=== PATIENT | female | born 1970 | race Caucasian/White ===

== ENCOUNTER 2017-12-08 20:23 | Emergency (ER) | payer BC ==
[~2017-12-08] VITALS: Ht 162.6 cm; Wt 88.1 kg
[~2017-12-08 20:23] MED LIST: CARI350T27 PO; LEVO25TA30 PO; OSEL75CA23 PO; SERT1TAB71 PO; VITAMINS
[2017-12-08 20:37] VITALS: Ht 162.6 cm; Wt 88.1 kg
[2017-12-08] MEDS ORDERED: KETOROLAC TROMETHAMINE 30 MG/ML VIAL IV STA (21:18)
[2017-12-08] MEDS ORDERED: SODIUM CHLORIDE 0.9% 1000ML 1,000 ML IV STA (21:18)
[2017-12-08 21:44] VITALS: O2SAT 95
[2017-12-08 21:59] LABS: BASO % 0.2 %; BASO ABS # 0.01 K/uL (0-0.2); EOS % 0.9 %; EOS ABS # 0.05 K/uL (0-0.5); HEMATOCRIT 41.5 % (37-47); HEMOGLOBIN 14.1 g/dL (12.0-16.0); IG# 0.01 K/uL (0.00-0.02); LYMPH % 15.4 %; LYMPH ABS # 0.83 K/uL (1.2-3.4); MEAN CELL VOLUME 88.7 fL (80-100); MEAN CORPUSCULAR HEMOGLOBIN 30.1 pg (25-34); MEAN PLATELET VOLUME 9.8 fL (7.4-10.4); MONO % 9.5 %; MONO ABS # 0.51 K/uL (0.11-0.59); NEUT % 73.8 %; NEUT ABS # 3.97 K/uL (1.4-6.5); PLATELET COUNT 194 K/uL (130-400); RED CELL DISTRIBUTION WIDTH CV 13.1 % (11.5-14.5); RED CELL DISTRIBUTION WIDTH SD 42.3 fL (36.4-46.3); WHITE BLOOD COUNT 5.38 K/uL (4.8-10.8)
[2017-12-08] MEDS ORDERED: LEVO25TA5 PO (22:11)
[2017-12-08] MEDS ORDERED: PANT40TA PO (22:13)
[2017-12-08] MEDS ORDERED: LEVO50TA6 PO (22:14)
[2017-12-08 22:16] LABS: INFLUENZA B ANTIGEN Neg for Influ B (NEG)
[2017-12-08 22:17] LABS: ALBUMIN 3.7 gm/dl (3.4-5.0); ALT/SGPT 29 U/L (12-78); BLOOD UREA NITROGEN 12 mg/dl (7-18); CALCIUM 8.6 mg/dl (8.5-10.1); CARBON DIOXIDE 26 mmol/L (21-32); CREATININE 0.94 mg/dl (0.60-1.20); GLUCOSE 100 mg/dl (70-99); POTASSIUM 3.7 mmol/L (3.5-5.1); SODIUM 135 mmol/L (136-145)
--- NOTE | 2017-12-08 22:17 | DIAGNOSTIC IMAGING REPORT ---
TWO VIEW CHEST CLINICAL HISTORY: Cough and fever. FINDINGS: PA and lateral chest radiographs are compared to study dated 10/15/2012. The cardiomediastinal silhouette is unremarkable. There our bibasilar airspace opacities. There is no pleural effusion or pneumothorax. The bony thorax appears intact. IMPRESSION: Bibasilar airspace opacities likely represent atelectasis. Correlate clinically for evidence of an infectious/inflammatory pneumonitis. Electronically signed by: Dany Jennings M.D. 12/08/2017 10:16 PM Dictated Date/Time: 12/08/2017 10:15 PM
[2017-12-08 22:22] LABS: ALKALINE PHOSPHATASE 54 U/L (45-117); AST/SGOT 18 U/L (15-37); CKMB < 0.5 ng/ml (0.5-3.6); TOTAL PROTEIN 7.9 gm/dl (6.4-8.2)
[2017-12-08] MEDS ORDERED: ACETAMINOPHEN 325 MG TAB PO STA (22:55)
[2017-12-08] MEDS ORDERED: ACETAMINOPHEN SUSP 160 MG/5 ML UDC PO STA (22:58)
[2017-12-08] MEDS ORDERED: ACETAMINOPHEN SUSP 160 MG/5 ML UDC ONE (23:04)
[2017-12-08 23:06] VITALS: TEMP 37.4
--- NOTE | 2017-12-08 23:55 | EMERGENCY ROOM VISIT NOTE ---
History First contact with patient: 21:11 Chief Complaint: FEVER Stated Complaint: FEVER, CHILLS, COUGH, PAIN History of Present Illness The patient is a 47 year old female who presents to the Emergency Room via private vehicle with complaints of "fever, chills, cough, pain". The patient states that this past Wednesday she began with tiredness, pain in the lower back, favoring left side, as well as cough, and fever. She denies shortness of breath. She states when she coughs there is pain in her chest and her ribs. She has no pertinent past medical history. She notes that she rarely has a fever. There is minimum sputum production. She denies any dysuria but does note that her urine does smell foul. She has not had any OTC antipyretic medication today. Review of Systems A complete 10-point Review of Systems was discussed with the patient, with pertinent positives and negatives listed in the History of Present Illness. All remaining Review of Systems questions can be considered negative unless otherwise specified. Past Medical/Surgical History Medical Problems: (1) Gastroesophageal reflux disease (2) Hypothyroidism (3) IRRITABLE BOWEL SYNDROME (4) Malignant melanoma (5) Tobacco user Social History Smoking Status: Never Smoker Alcohol Use: none Marital Status: single Occupation Status: employed Current/Historical Medications Scheduled Levothyroxine Sodium (Levothyroxine Sodium), 50 MCG PO DAILY Pantoprazole (Protonix), 40 MG PO DAILY Sertraline Hcl (Zoloft), 75 MG PO DAILY Scheduled PRN Carisoprodol (Soma), 350 MG PO BID PRN for Pain Physical Exam Vital Signs Date Time Temp Pulse Resp B/P (MAP) Pulse Ox O2 Delivery O2 Flow Rate FiO2 12/09/17 00:58 81 14 103/51 97 Room Air 12/08/17 23:06 37.4 86 14 132/75 97 Room Air 12/08/17 22:13 37.8 90 18 126/76 99 Room Air 12/08/17 21:54 87 12/08/17 21:44 95 Room Air 12/08/17 20:37 37.9 119 20 128/88 97 Room Air Physical Exam VITAL SIGNS - Vital signs and nursing notes were reviewed. Stable. Afebrile, tachycardic. GENERAL -47-year-old female appearing her stated age who is in no acute distress. Nontoxic on exam. Communicates well with provider and answers questions appropriately. SKIN - Without rashes. No petechiae or meningeal rash. HEAD - NC/AT. EYES - Sclera anicteric. EARS - No deformities of external structures noted on gross examination bilaterally. External auditory canals without discharge or otorrhea. Tympanic membranes pearly duenas without retraction or bulging. No fluid or purulent material visualized behind the TM. Handle of malleus, umbo, cone of light, pars tensa/flaccid all easily visualized. NOSE - Midline and without cyanosis. No epistaxis or purulent drainage noted. MOUTH/OROPHARYNX - Without perioral cyanosis. Buccal mucosa pink and moist and without leukoplakia. Tongue midline with equal elevation of palate bilaterally. No tonsillar hypertrophy, erythema, or exudates noted. Fair dentition noted. NECK - Neck with FROM. Supple to palpation. No meningismus. No nuchal rigidity. LUNGS - Chest wall symmetric without accessory muscle use, intercostals retractions, or central cyanosis. Normal vesicular breath sounds CTA B/L. No wheezes, rales, or rhonchi appreciated. CARDIAC - RRR with S1/S2. No murmur, rubs, or gallops appreciated. ABDOMEN - Abdominal contour normal without pulsations or visible masses. BS normoactive all four quadrants. No pertinent tenderness, palpable masses, hepatosplenomegaly, or ascites noted. EXTREMITIES - No clubbing or peripheral cyanosis. No pretibial edema present. NEUROLOGIC - Cranial nerves II through XII grossly intact. Medical Decision & Procedures ER Provider Diagnostic Interpretation: TWO VIEW CHEST CLINICAL HISTORY: Cough and fever. FINDINGS: PA and lateral chest radiographs are compared to study dated 10/15/2012. The cardiomediastinal silhouette is unremarkable. There our bibasilar airspace opacities. There is no pleural effusion or pneumothorax. The bony thorax appears intact. IMPRESSION: Bibasilar airspace opacities likely represent atelectasis. Correlate clinically for evidence of an infectious/inflammatory pneumonitis. Electronically signed by: Dany Jennings M.D. 12/08/2017 10:16 PM Dictated Date/Time: 12/08/2017 10:15 PM Laboratory Results 12/08/17 21:30 Red Blood Count 4.68, Mean Corpuscular Volume 88.7, Mean Corpuscular Hemoglobin 30.1, Mean Corpuscular Hemoglobin Concent 34.0, Mean Platelet Volume 9.8, Neutrophils (%) (Auto) 73.8, Lymphocytes (%) (Auto) 15.4, Monocytes (%) (Auto) 9.5, Eosinophils (%) (Auto) 0.9, Basophils (%) (Auto) 0.2, Neutrophils # (Auto) 3.97, Lymphocytes # (Auto) 0.83, Monocytes # (Auto) 0.51, Eosinophils # (Auto) 0.05, Basophils # (Auto) 0.01 12/08/17 21:30 Test 12/08/17 21:30 12/08/17 21:38 12/08/17 21:40 12/08/17 23:49 White Blood Count 5.38 K/uL (4.8-10.8) Red Blood Count 4.68 M/uL (4.2-5.4) Hemoglobin 14.1 g/dL (12.0-16.0) Hematocrit 41.5 % (37-47) Mean Corpuscular Volume 88.7 fL (80-100) Mean Corpuscular Hemoglobin 30.1 pg (25-34) Mean Corpuscular Hemoglobin Concent 34.0 g/dl (32-36) Platelet Count 194 K/uL (130-400) Mean Platelet Volume 9.8 fL (7.4-10.4) Neutrophils (%) (Auto) 73.8 % Lymphocytes (%) (Auto) 15.4 % Monocytes (%) (Auto) 9.5 % Eosinophils (%) (Auto) 0.9 % Basophils (%) (Auto) 0.2 % Neutrophils # (Auto) 3.97 K/uL (1.4-6.5) Lymphocytes # (Auto) 0.83 K/uL (1.2-3.4) Monocytes # (Auto) 0.51 K/uL (0.11-0.59) Eosinophils # (Auto) 0.05 K/uL (0-0.5) Basophils # (Auto) 0.01 K/uL (0-0.2) RDW Standard Deviation 42.3 fL (36.4-46.3) RDW Coefficient of Variation 13.1 % (11.5-14.5) Immature Granulocyte % (Auto) 0.2 % Immature Granulocyte # (Auto) 0.01 K/uL (0.00-0.02) Anion Gap 6.0 mmol/L (3-11) Est Creatinine Clear Calc Drug Dose 80.4 ml/min Estimated GFR () 84.3 Estimated GFR (Non- 72.8 BUN/Creatinine Ratio 12.5 (10-20) Calcium Level 8.6 mg/dl (8.5-10.1) Total Bilirubin 0.2 mg/dl (0.2-1) Aspartate Amino Transf (AST/SGOT) 18 U/L (15-37) Alanine Aminotransferase (ALT/SGPT) 29 U/L (12-78) Alkaline Phosphatase 54 U/L (45-117) Total Creatine Kinase 73 U/L (26-192) Creatine Kinase MB < 0.5 ng/ml (0.5-3.6) Creatine Kinase MB Ratio (0-3.0) Total Protein 7.9 gm/dl (6.4-8.2) Albumin 3.7 gm/dl (3.4-5.0) Globulin 4.2 gm/dl (2.5-4.0) Albumin/Globulin Ratio 0.9 (0.9-2) Influenza Type A Antigen POS for Influ A (NEG) Influenza Type B Antigen Neg for Influ B (NEG) Lactic Acid Level 1.0 mmol/L (0.4-2.0) Urine Color YELLOW Urine Appearance CLEAR (CLEAR) Urine pH 8.0 (4.5-7.5) Urine Specific [place] 1.020 (1.000-1.030) Urine Protein NEG (NEG) Urine Glucose (UA) NEG (NEG) Urine Ketones NEG (NEG) Urine Occult Blood NEG (NEG) Urine Nitrite NEG (NEG) Urine Bilirubin NEG (NEG) Urine Urobilinogen NEG (NEG) Urine Leukocyte Esterase NEG (NEG) Urine Test NEG (NEG) Medications Administered Medications (Trade) Dose Ordered Sig/Eugenie Route Start Time Stop Time Status Last Admin Dose Admin Sodium Chloride 1,000 ml @ 999 mls/hr Q1H1M STAT IV 12/08/17 21:18 12/08/17 22:18 DC 12/08/17 21:50 999 MLS/HR Ketorolac Tromethamine (Toradol Inj) 30 mg NOW STAT IV 12/08/17 21:18 12/08/17 21:20 DC 12/08/17 21:50 30 MG Acetaminophen (Tylenol Children'S Susp) 650 mg NOW STAT PO 12/08/17 22:58 12/08/17 23:00 DC 12/08/17 23:08 650 MG Medical Decision Patient was seen and evaluated as above. She presents to us today with a fever , chills, cough and diffuse muscle pain. She is nontoxic on exam, but does appear to be ill. She is tachycardic, and febrile. IV access was initiated, and the above workup was performed. I did elect to obtain blood culture secondary to her clinical presentation. There is no leukocytosis or anemia. Metabolic panel reveals sodium low at 135, no evidence of kidney or liver failure. CK-MB normal. No evidence of rhabdomyolysis. She was positive for flu. Urine negative. She appears stable for outpatient management. X-ray shows what I believe to be atelectasis over pneumonitis. She was given fluids here, Toradol and Tylenol. She appears to have improved. She is to follow with her family doctor or return with worsening. She was educated upon management, educated upon worrisome symptoms which to return, had questions and provided discharge, and was discharged home in good condition. In evaluation treatment this patient the following differential diagnoses were entertained: Influenza, sepsis, pneumonia, UTI, pyelonephritis, among others. Impression Primary Impression: Fever Additional Impression: Influenza Departure Information Dispostion Home / Self-Care Condition GOOD Referrals Stephon Rodriguez M.D. (PCP) Patient Instructions My [facility] Additional Instructions You have been treated in the Emergency Department for fever, chills, cough and low back pain Your testing indicated that you have influenza (flu) This is contagious. I recommend hand washing and wearing a mask when around people to cover your nose and mouth to help prevent spread. For fever and pain control, you can use the following [id number] medicines : - Regular strength (325mg/tab) Tylenol (acetaminophen) 2 tabs every 4-6 hours as needed. Do not exceed 12 tablets in a 24 hour period. Avoid taking more than 3 grams (3000 mg) of Tylenol per day. This includes any other sources of acetaminophen you may take on a regular basis. - Regular strength (200 mg/tab) Advil (ibuprofen) 1-2 tabs every 4-6 hours as needed. Do not exceed a dose of 3200 mg per day. I recommend rest, and plenty of fluids to include those with electrolytes such as Gatorade or Powerade. Please call your family doctor to schedule follow-up in about 1 week. As we discussed you're been diagnosed with the flu, and found to be positive upon our testing here. Please return with any new/concerning symptoms. Problem Qualifiers
[2017-12-09 00:58] VITALS: BP 103/51; PULSE 81; O2SAT 97
[2017-12-10] MEDS ORDERED: CARI350T PO (10:12)
== END 2017-12-09 01:20 | disposition home or self-care (01) ==
LOC: C.EDB 20:25
DX: R50.9 Fever, unspecified (principal); J11.1 Influenza due to unidentified influenza virus with other respiratory manifestations; K21.9 Gastro-esophageal reflux disease without esophagitis; E03.9 Hypothyroidism, unspecified; K58.9 Irritable bowel syndrome, unspecified; F17.200 Nicotine dependence, unspecified, uncomplicated; Z85.820 Personal history of malignant melanoma of skin

== ENCOUNTER 2017-12-10 07:24 | Emergency (ER) | payer BC ==
[~2017-12-10] VITALS: Ht 162.6 cm; Wt 89.0 kg
[~2017-12-10 07:24] MED LIST changes: -LEVO25TA30 PO; +LEVO50TA6 PO; -OSEL75CA23 PO; +PANT40TA PO; -VITAMINS
[2017-12-10 07:26] VITALS: Ht 162.6 cm; Wt 89.0 kg
[2017-12-10] MEDS ORDERED: KETOROLAC TROMETHAMINE 30 MG/ML VIAL IV STA (07:50)
[2017-12-10] MEDS ORDERED: ONDANSETRON INJ 2 MG/ML 2 ML VIAL IV STA (07:50)
--- NOTE | 2017-12-10 08:01 | EMERGENCY ROOM VISIT NOTE ---
History First contact with patient: 07:37 Chief Complaint: ABDOMINAL PAIN Stated Complaint: SEVERE ABDOMINAL PAIN,DX WITH THE FLU Nursing Triage Summary: c/o lower pelvic pain with nausea recently dx with the flu History of Present Illness The patient is a 47 year old female who presents to the Emergency Room with complaints of severe lower abdominal pain which began at approximately midnight. The patient states she was here 2 days ago and diagnosed with the flu. She did not have the severe abdominal pain at that time, but developed it last night. She states she is currently on her menstrual cycle, however has not ever experienced pain like this before. She describes it as a sharp/ stabbing pain throughout her entire lower abdomen and radiating into her hips and back. She denies any urinary symptoms including frequency, blood in the urine, dysuria, or urinary hesitancy. She has a sensation like she may have to move her bowels, however has been unsuccessful. She does believe she may be constipated, as she has not moved her bowels for 2 days. She does have a history of ruptured ovarian cyst at approximately 19 years old, and states the pain she is experiencing now feels similar to the pain she felt then. She has had intermittent fevers, cough, chills, congestion. She states she had been taking Tylenol and ibuprofen for her fever and body aches, but has not taken any medications since last night. She did not vomit, but does complain of nausea. She rates the pain 10/10. She has been sick since Wednesday, and was not started on Tamiflu. Review of Systems A complete 10 point review of systems was reviewed with the patient with pertinent positives and negatives as per history of present illness. All else were negative. Past Medical/Surgical History Medical Problems: (1) Gastroesophageal reflux disease (2) Hypothyroidism (3) IRRITABLE BOWEL SYNDROME (4) Malignant melanoma (5) Tobacco user Social History Smoking Status: Never Smoker Alcohol Use: none Marital Status: single Occupation Status: employed Current/Historical Medications Scheduled Levothyroxine Sodium (Levothyroxine Sodium), 50 MCG PO DAILY Pantoprazole (Protonix), 40 MG PO DAILY Sertraline Hcl (Zoloft), 75 MG PO DAILY Scheduled PRN Carisoprodol (Soma), 350 MG PO BID PRN for Pain Carisoprodol (Soma), 1 TAB PO TID PRN for Muscle Spasms Physical Exam Vital Signs Date Time Temp Pulse Resp B/P (MAP) Pulse Ox O2 Delivery O2 Flow Rate FiO2 12/10/17 10:25 73 20 107/75 96 12/10/17 09:25 69 20 103/54 96 Room Air 12/10/17 07:26 37.0 87 20 126/87 95 Physical Exam VITALS: Vitals are noted on the nurse's note and reviewed by myself. Vital signs stable. GENERAL: This is a 47-year-old obese white female, appears in pain, unable to lie still, however, in no acute distress, nondiaphoretic, well-developed well- nourished. SKIN: The skin was without rashes, erythema, edema, or bruising. There is no tenting of the skin. Capillary reflex less than 2 seconds. HEAD: Normocephalic atraumatic. EARS: External auditory canals clear, tympanic membranes pearly duenas without erythema or effusion bilaterally. EYES: Pupils equal round and reactive to light and accommodation. Conjunctivae without injection, sclerae without icterus. Extraocular movements intact. NOSE: Patent, turbinates without inflammation or discharge. No sinus tenderness. MOUTH: Mucous membranes moist. Tonsils are not enlarged. Pharynx without erythema or exudate. Uvula midline. Airway patent. Tongue does not deviate. NECK: Supple without nuchal rigidity. No lymphadenopathy. No thyromegaly. Cervical spine is nontender. No JVD. HEART: Regular rate and rhythm without murmurs gallops or rubs. LUNGS: Clear to auscultation bilaterally without wheezes, rales or rhonchi. No dullness to percussion. No retractions or accessory muscle use. ABDOMEN: Positive bowel sounds x 4. Normal tympanic percussion. Abdomen was diffusely tender, but more so in the suprapubic region. Soft, without masses or organomegaly. Buenrostro sign negative. No guarding or rebound tenderness. MUSCULOSKELETAL: No muscle atrophy, erythema, or edema noted. Full range of motion without joint tenderness in all extremities. No tenderness to palpation. Normal gait. Strength 5/5 throughout. NEURO: Patient was alert and oriented to person place and time. Normal sensation to light and sharp touch. Deep tendon reflexes 2+ throughout. No focal neurological deficits. Medical Decision & Procedures ER Provider Diagnostic Interpretation: PA CHEST WITH ABDOMINAL SERIES CLINICAL HISTORY: Lower abdominal pain. Constipation. FINDINGS: A PA chest radiograph is compared to study dated 12/04/2013. The cardiomediastinal silhouette is unremarkable. The lungs and pleural spaces are clear. No pneumothorax is seen. The bony thorax is grossly intact. Supine and erect abdominal radiographs are obtained. No prior studies are available for comparison at the time of dictation. There is a nonobstructed abdominal bowel gas pattern. Mild to moderate colonic fecal retention is observed. No evidence of intraperitoneal free air is seen. There are no abnormal abdominal calcifications. Phleboliths are identified in the pelvis. The lumbosacral spine and bony pelvis appear intact. IMPRESSION: 1. No active disease in the chest. 2. Nonobstructed abdominal bowel gas pattern. Electronically signed by: Dany Jennings M.D. 12/10/2017 9:12 AM Dictated Date/Time: 12/10/2017 9:12 AM ULTRASOUND OF THE PELVIS CLINICAL HISTORY: Suprapubic pelvic pain. COMPARISON STUDY: No priors. TECHNIQUE: Real-time, grayscale, and color flow sonography of the pelvis is performed transabdominally. The patient declined the endovaginal examination. Images are reviewed in the transverse and longitudinal planes. FINDINGS: Uterus: The uterus is normal in size and echotexture, measuring 8.2 x 3.9 x 4.5 cm. Endometrium: The endometrium is normal in appearance, and the endometrial stripe is normal in thickness measuring up to 0.5 cm. Ovaries: The ovaries are normal in size and morphology. The right ovary measures 2.6 x 1.8 x 1.7 cm and the left ovary measures 2.1 x 1.3 x 1.7 cm. A follicle is noted on the right. Normal Doppler waveforms are shown within both ovaries. Pelvis: There is no free fluid in the cul-de-sac. No concerning adnexal lesion is seen. IMPRESSION: 1. Unremarkable transabdominal sonographic assessment of the pelvis. 2. The patient declined the endovaginal examination. Electronically signed by: Dany Jennings M.D. 12/10/2017 9:11 AM Dictated Date/Time: 12/10/2017 9:10 AM Laboratory Results 12/10/17 08:00 Red Blood Count 4.33, Mean Corpuscular Volume 88.5, Mean Corpuscular Hemoglobin 30.0, Mean Corpuscular Hemoglobin Concent 33.9, Mean Platelet Volume 9.9, Neutrophils (%) (Auto) 75.0, Lymphocytes (%) (Auto) 15.0, Monocytes (%) (Auto) 8.9, Eosinophils (%) (Auto) 0.9, Basophils (%) (Auto) 0.1, Neutrophils # (Auto) 5.24, Lymphocytes # (Auto) 1.05, Monocytes # (Auto) 0.62, Eosinophils # (Auto) 0.06, Basophils # (Auto) 0.01 12/10/17 08:00 Test 12/10/17 07:55 12/10/17 08:00 Urine Color YELLOW Urine Appearance CLEAR (CLEAR) Urine pH 5.0 (4.5-7.5) Urine Specific [place] 1.020 (1.000-1.030) Urine Protein NEG (NEG) Urine Glucose (UA) NEG (NEG) Urine Ketones NEG (NEG) Urine Occult Blood 2+ (NEG) Urine Nitrite NEG (NEG) Urine Bilirubin NEG (NEG) Urine Urobilinogen NEG (NEG) Urine Leukocyte Esterase TRACE (NEG) Urine WBC (Auto) 1-5 /hpf (0-5) Urine RBC (Auto) 0-4 /hpf (0-4) Urine Hyaline Casts (Auto) 0 /lpf (0-5) Urine Epithelial Cells (Auto) 5-10 /lpf (0-5) Urine Bacteria (Auto) NEG (NEG) Urine Test NEG (NEG) White Blood Count 6.99 K/uL (4.8-10.8) Red Blood Count 4.33 M/uL (4.2-5.4) Hemoglobin 13.0 g/dL (12.0-16.0) Hematocrit 38.3 % (37-47) Mean Corpuscular Volume 88.5 fL (80-100) Mean Corpuscular Hemoglobin 30.0 pg (25-34) Mean Corpuscular Hemoglobin Concent 33.9 g/dl (32-36) Platelet Count 181 K/uL (130-400) Mean Platelet Volume 9.9 fL (7.4-10.4) Neutrophils (%) (Auto) 75.0 % Lymphocytes (%) (Auto) 15.0 % Monocytes (%) (Auto) 8.9 % Eosinophils (%) (Auto) 0.9 % Basophils (%) (Auto) 0.1 % Neutrophils # (Auto) 5.24 K/uL (1.4-6.5) Lymphocytes # (Auto) 1.05 K/uL (1.2-3.4) Monocytes # (Auto) 0.62 K/uL (0.11-0.59) Eosinophils # (Auto) 0.06 K/uL (0-0.5) Basophils # (Auto) 0.01 K/uL (0-0.2) RDW Standard Deviation 42.1 fL (36.4-46.3) RDW Coefficient of Variation 13.1 % (11.5-14.5) Immature Granulocyte % (Auto) 0.1 % Immature Granulocyte # (Auto) 0.01 K/uL (0.00-0.02) Anion Gap 5.0 mmol/L (3-11) Est Creatinine Clear Calc Drug Dose 86.3 ml/min Estimated GFR () 91.3 Estimated GFR (Non- 78.8 BUN/Creatinine Ratio 12.6 (10-20) Calcium Level 8.3 mg/dl (8.5-10.1) Total Bilirubin 0.1 mg/dl (0.2-1) Aspartate Amino Transf (AST/SGOT) 16 U/L (15-37) Alanine Aminotransferase (ALT/SGPT) 23 U/L (12-78) Alkaline Phosphatase 48 U/L (45-117) Total Protein 7.2 gm/dl (6.4-8.2) Albumin 3.4 gm/dl (3.4-5.0) Globulin 3.8 gm/dl (2.5-4.0) Albumin/Globulin Ratio 0.9 (0.9-2) Lipase 157 U/L (73-393) Medications Administered Medications (Trade) Dose Ordered Sig/Eugenie Route Start Time Stop Time Status Last Admin Dose Admin Ketorolac Tromethamine (Toradol Inj) 30 mg NOW STAT IV 12/10/17 07:50 12/10/17 07:52 DC 12/10/17 08:04 30 MG Ondansetron HCl (Zofran Inj) 4 mg NOW STAT IV 12/10/17 07:50 12/10/17 07:52 DC 12/10/17 08:03 4 MG ED Course The patient was seen and evaluated as above. IV access obtained, labs drawn. The patient was given 30 mg Toradol and 4 mg Zofran for her pain and nausea. Abdominal x-ray and pelvic ultrasound performed and reviewed by myself and radiologist. The patient was reevaluated, with repeat abdominal examination. She is significantly less tender now. She does continue to complain of some very mild pelvic cramping. I discussed all findings with the patient at bedside. I discussed the case with Dr. Lucero. He did review the EMR, and agreed with discharge. Discharge instructions were reviewed with the patient. She was instructed on strict return precautions. All questions were answered to the patient's satisfaction. She did request a prescription for Soma, she states this has helped with her discomfort. The patient was discharged home in good condition. Medical Decision This is a 47-year-old female patient presents to the emergency department today complaining of severe abdominal cramping and pain. The patient is currently experiencing her menstrual cycle. She was also diagnosed with influenza A 2 days ago. The patient's symptoms improved significantly with IV Toradol and Zofran. Laboratory workup in the emergency department did not reveal any leukocytosis, electrolyte or renal function abnormalities, or urinary tract infection. Imaging studies did not show any signs of bowel obstruction, ovarian cyst, ovarian torsion. I did discuss the possibility of performing a CT scan of the abdomen/pelvis with the patient as well as Dr. Sams. As the patient's overall workup is negative, and her symptoms have significantly improved with pain medication, decision was made to discharge the patient home with instructions on proper pain management with strict return precautions if symptoms worsen. The patient was in agreement with this plan. Etiologies such as appendicitis, diverticulitis, obstruction, inflammatory bowel disease, renal colic, PUD, biliary pathology, pancreatitis, mesenteric ischemia, aortic pathology, infections, genitourinary, ovarian cyst, ovarian torsion, , , UTI, perforated viscus, as well as others were entertained. Medication Reconcilliation Current Medication List: was personally reviewed by me Blood Pressure Screening Patient's blood pressure: Normal blood pressure Impression Primary Impression: Abdominal pain Additional Impression: Influenza A Departure Information Dispostion Home / Self-Care Condition GOOD Prescriptions Carisoprodol (SOMA) 350 Mg Tab 1 TAB PO TID Y for Muscle Spasms, #15 TAB Prov: Pauline Quarles PA-C 12/10/17 Referrals Stephon Rodriguez M.D. (PCP) Patient Instructions ED Abdominal Pain Unkn Cause, My [facility] Additional Instructions You have been treated in the Emergency Department your Abdominal Pain. Laboratory results and imaging studies have ruled out any emergent causes for your abdominal pain which would warrant admission or surgery. You have been prescribed Soma to be used for pain control/muscle spasms. Take as instructed. You cannot drive or consume alcohol while on this medicine. This medicine should only be used for pain that cannot be controlled with over-the- counter pain medicines. Use the antiemetics you had been previously prescribed for nausea or vomiting. For pain control, you can use the following [id number] medicines (if >12 yo): Ibuprofen(Motrin, Advil) may be used for fever or pain. Use 600mg every six hours as needed. Take with food. Avoid using more than 2400mg in a 24 hour period. Do not use 2400mg per day for more than three consecutive days without physician direction. Prolonged inappropriate use can lead to stomach upset or ulcers. (AND/OR) Acetaminophen(Tylenol) may be used for fever or pain. Use 1000mg every six hours as needed. Avoid using more than 3000mg in a 24 hour period. Drink plenty of water and stay well hydrated. As with any trip to the Emergency Department, you should follow-up with your Primary Care Provider from today's visit. Return to the emergency department if your symptoms persist despite treatment plan outlined above or if the following symptoms occur: increased fevers, chills , worsening nausea/vomiting, abdominal pain, blood in your stool or urine. Problem Qualifiers Primary Impression: Abdominal pain Abdominal location: lower abdomen, unspecified Qualified Codes: R10.30 - Lower abdominal pain, unspecified
[2017-12-10 08:35] LABS: BASO % 0.1 %; BASO ABS # 0.01 K/uL (0-0.2); EOS % 0.9 %; EOS ABS # 0.06 K/uL (0-0.5); HEMATOCRIT 38.3 % (37-47); IG# 0.01 K/uL (0.00-0.02); LYMPH ABS # 1.05 K/uL (1.2-3.4); MEAN CELL VOLUME 88.5 fL (80-100); MEAN CORPUSCULAR HGB CONC 33.9 g/dl (32-36); MEAN PLATELET VOLUME 9.9 fL (7.4-10.4); MONO % 8.9 %; MONO ABS # 0.62 K/uL (0.11-0.59); NEUT ABS # 5.24 K/uL (1.4-6.5); PLATELET COUNT 181 K/uL (130-400); RED CELL DISTRIBUTION WIDTH CV 13.1 % (11.5-14.5); RED CELL DISTRIBUTION WIDTH SD 42.1 fL (36.4-46.3); WHITE BLOOD COUNT 6.99 K/uL (4.8-10.8)
[2017-12-10 08:44] LABS: ALBUMIN 3.4 gm/dl (3.4-5.0); CALCIUM 8.3 mg/dl (8.5-10.1); CREATININE 0.88 mg/dl (0.60-1.20); POTASSIUM 3.8 mmol/L (3.5-5.1)
[2017-12-10 08:47] LABS: TOTAL PROTEIN 7.2 gm/dl (6.4-8.2)
--- NOTE | 2017-12-10 09:13 | DIAGNOSTIC IMAGING REPORT ---
ULTRASOUND OF THE PELVIS CLINICAL HISTORY: Suprapubic pelvic pain. COMPARISON STUDY: No priors. TECHNIQUE: Real-time, grayscale, and color flow sonography of the pelvis is performed transabdominally. The patient declined the endovaginal examination. Images are reviewed in the transverse and longitudinal planes. FINDINGS: Uterus: The uterus is normal in size and echotexture, measuring 8.2 x 3.9 x 4.5 cm. Endometrium: The endometrium is normal in appearance, and the endometrial stripe is normal in thickness measuring up to 0.5 cm. Ovaries: The ovaries are normal in size and morphology. The right ovary measures 2.6 x 1.8 x 1.7 cm and the left ovary measures 2.1 x 1.3 x 1.7 cm. A follicle is noted on the right. Normal Doppler waveforms are shown within both ovaries. Pelvis: There is no free fluid in the cul-de-sac. No concerning adnexal lesion is seen. IMPRESSION: 1. Unremarkable transabdominal sonographic assessment of the pelvis. 2. The patient declined the endovaginal examination. Electronically signed by: Dany Jennings M.D. 12/10/2017 9:11 AM Dictated Date/Time: 12/10/2017 9:10 AM
--- NOTE | 2017-12-10 09:14 | DIAGNOSTIC IMAGING REPORT ---
PA CHEST WITH ABDOMINAL SERIES CLINICAL HISTORY: Lower abdominal pain. Constipation. FINDINGS: A PA chest radiograph is compared to study dated 12/04/2013. The cardiomediastinal silhouette is unremarkable. The lungs and pleural spaces are clear. No pneumothorax is seen. The bony thorax is grossly intact. Supine and erect abdominal radiographs are obtained. No prior studies are available for comparison at the time of dictation. There is a nonobstructed abdominal bowel gas pattern. Mild to moderate colonic fecal retention is observed. No evidence of intraperitoneal free air is seen. There are no abnormal abdominal calcifications. Phleboliths are identified in the pelvis. The lumbosacral spine and bony pelvis appear intact. IMPRESSION: 1. No active disease in the chest. 2. Nonobstructed abdominal bowel gas pattern. Electronically signed by: Dany Jennings M.D. 12/10/2017 9:12 AM Dictated Date/Time: 12/10/2017 9:12 AM
[2017-12-10] MEDS ORDERED: CARI350T PO (10:12)
[2017-12-10 10:25] VITALS: BP 107/75; PULSE 73; O2SAT 96
== END 2017-12-10 10:45 | disposition home or self-care (01) ==
LOC: C.EDB 07:25
DX: R10.30 Lower abdominal pain, unspecified (principal); J11.1 Influenza due to unidentified influenza virus with other respiratory manifestations; K21.9 Gastro-esophageal reflux disease without esophagitis; E03.9 Hypothyroidism, unspecified; K58.9 Irritable bowel syndrome, unspecified; C49.9 Malignant neoplasm of connective and soft tissue, unspecified

== ENCOUNTER 2018-06-09 19:39 | Emergency (ER) | payer BC ==
[~2018-06-09] VITALS: Ht 162.6 cm; Wt 87.9 kg
[2018-06-09 19:43] VITALS: TEMP 37; Ht 162.6 cm; Wt 87.9 kg
[2018-06-09] MEDS ORDERED: ONDANSETRON INJ 2 MG/ML 2 ML VIAL IV STA (19:59)
[2018-06-09] MEDS ORDERED: SODIUM CHLORIDE 0.9% 1000ML 1,000 ML IV STA (19:59)
[2018-06-09] MEDS ORDERED: HYDROmorphone INJ 1 MG/ML SYR IV STA (19:59)
[2018-06-09 20:47] LABS: EOS % 0.3 %; EOS ABS # 0.02 K/uL (0-0.5); HEMATOCRIT 38.6 % (37-47); HEMOGLOBIN 13.3 g/dL (12.0-16.0); IG# 0.01 K/uL (0.00-0.02); LYMPH % 31.4 %; LYMPH ABS # 1.86 K/uL (1.2-3.4); MEAN CELL VOLUME 85.2 fL (80-100); MEAN CORPUSCULAR HEMOGLOBIN 29.4 pg (25-34); MEAN CORPUSCULAR HGB CONC 34.5 g/dl (32-36); MONO % 5.7 %; MONO ABS # 0.34 K/uL (0.11-0.59); NEUT % 62.4 %; NEUT ABS # 3.69 K/uL (1.4-6.5); PLATELET COUNT 219 K/uL (130-400); RED CELL DISTRIBUTION WIDTH CV 12.5 % (11.5-14.5); RED CELL DISTRIBUTION WIDTH SD 38.7 fL (36.4-46.3); WHITE BLOOD COUNT 5.92 K/uL (4.8-10.8)
[2018-06-09 21:05] LABS: CALCIUM 8.8 mg/dl (8.5-10.1); CREATININE 0.96 mg/dl (0.60-1.20); POTASSIUM 3.6 mmol/L (3.5-5.1)
--- NOTE | 2018-06-09 21:13 | DIAGNOSTIC IMAGING REPORT ---
LUMBAR SPINE 2 OR 3 VIEWS CLINICAL HISTORY: lower back pain COMPARISON STUDY: No previous studies for comparison. FINDINGS: No acute fractures or dislocations are visualized. There are mild degenerative changes most pronounced the thoracolumbar junction. No destructive lesions are visualized on conventional radiographic imaging IMPRESSION: No acute fractures or traumatic subluxations are visualized. Electronically signed by: Herb Portillo M.D. 06/09/2018 9:11 PM Dictated Date/Time: 06/09/2018 9:10 PM
[2018-06-09 22:33] VITALS: BP 126/72; PULSE 82; O2SAT 98
--- NOTE | 2018-06-10 00:55 | EMERGENCY ROOM VISIT NOTE ---
History Report prepared by Stephy: Ajay Wood Under the Supervision of: Dr. Az Lala D.O. First contact with patient: 19:49 Chief Complaint: BACK PAIN Stated Complaint: LOWER BACK PAIN, CELLULITUS ON LOWER BACK History of Present Illness The patient is a 47 year old female who presents to the Emergency Room with complaints of worsening back pain that began two days ago. She rates her pain as a 10/10 in severity. She reports her pain is worsened with movement. The patient states that she had a colonoscopy performed three days ago. She reports that the next day she woke up with lower back pain. The patient states she has a history of two protruding discs and sciatica, which caused her to "shrug off" her pain. She reports she used ice and heat for her back. The patient states that when she went to use an ointment, her mother noticed a red adriana. She reports that she thought the area was red due to the heating pad. The patient states that when she got out of the shower today, she noticed the red adriana was still visible on her lower back. She reports she called [facility] who told her she had cellulitis. The patient states she took Bactrim at 1630. She reports that after taking the medication, she became nauseous and lightheaded. The patient denies weakness or numbness in legs, urinary symptoms, abdominal pain, vomiting, and upper respiratory complaints. She denies a smoking or asthma history. The patient reports a history of melanoma, which was superficial. Source of History: patient Onset: 2 days ago Position: back (lower) Symptom Intensity: 10/10 Timing: worsening Modifying Factors (Worsening): movement Modifying Factors (Relieving): ice, heat Associated Symptoms: + nausea, No vomiting, No abdominal pain, No urinary symptoms, No weakness, No numbness Note: Associated symptoms: red adriana to lower back, lightheaded Review of Systems See HPI for pertinent positives & negatives. A total of 10 systems reviewed and were otherwise negative. Past Medical & Surgical Medical Problems: (1) Gastroesophageal reflux disease (2) Hypothyroidism (3) IRRITABLE BOWEL SYNDROME (4) Malignant melanoma (5) Tobacco user Family History Patient reports no known family medical history. Social History Smoking Status: Never Smoker Alcohol Use: none Marital Status: single Occupation Status: employed Current/Historical Medications Scheduled Levothyroxine Sodium (Levothyroxine Sodium), 50 MCG PO DAILY Pantoprazole (Protonix), 40 MG PO DAILY Sertraline Hcl (Zoloft), 75 MG PO DAILY Scheduled PRN Carisoprodol (Soma), 350 MG PO BID PRN for Pain Allergies Coded Allergies: Sulfamethoxazole w/Trimethoprim (Unverified Allergy, Unknown, VOMITING, ) Yeast (Verified Allergy, Unknown, just don't feel good, 12/10/17) Physical Exam Vital Signs Date Time Temp Pulse Resp B/P (MAP) Pulse Ox O2 Delivery O2 Flow Rate FiO2 06/09/18 22:33 82 20 126/72 98 06/09/18 21:00 67 18 128/73 95 Room Air 06/09/18 19:43 37.0 91 18 142/83 96 Room Air Physical Exam GENERAL: Sitting up in bed, alert, well appearing, well nourished, no distress, non-toxic EYE EXAM: normal conjunctiva. OROPHARYNX: no exudate, no erythema, lips, buccal mucosa, and tongue normal and mucous membranes are moist NECK: supple, no nuchal rigidity, no adenopathy, non-tender LUNGS: Clear to auscultation. Normal chest wall mechanics HEART: no murmurs, S1 normal and S2 normal ABDOMEN: abdomen soft, non-tender, normo-active bowel sounds, no masses, no rebound or guarding. BACK: Back is symmetrical on inspection and there is no deformity, no CVA tenderness. Tenderness to palpation of mid lower lumbar paraspinal region tracking to right gluteus. SKIN: no rashes and no bruising. Area of erythema to left lower back 14 cm x 3 cm. No induration or warmth. UPPER EXTREMITIES: upper extremities are grossly normal. LOWER EXTREMITIES: No pitting edema. Flexion and extension of the hips, knees, ankles, and EHL 5/5 bilaterally. Gross sensation is intact. DPs are 2/4 bilateral. Patellar and Achilles reflexes are 2/4 bilateral NEURO EXAM: Normal sensorium, cranial nerves II-XII grossly intact, normal speech, no gross weakness of arms. Medical Decision & Procedures ER Provider Diagnostic Interpretation: Radiology results as stated below per my review and the radiologist's interpretation: LUMBAR SPINE 2 OR 3 VIEWS CLINICAL HISTORY: lower back pain COMPARISON STUDY: No previous studies for comparison. FINDINGS: No acute fractures or dislocations are visualized. There are mild degenerative changes most pronounced the thoracolumbar junction. No destructive lesions are visualized on conventional radiographic imaging IMPRESSION: No acute fractures or traumatic subluxations are visualized. Electronically signed by: Herb Portillo M.D. 06/09/2018 9:11 PM Dictated Date/Time: 06/09/2018 9:10 PM Laboratory Results 06/09/18 20:10 Red Blood Count 4.53, Mean Corpuscular Volume 85.2, Mean Corpuscular Hemoglobin 29.4, Mean Corpuscular Hemoglobin Concent 34.5, Mean Platelet Volume 10.0, Neutrophils (%) (Auto) 62.4, Lymphocytes (%) (Auto) 31.4, Monocytes (%) (Auto) 5.7, Eosinophils (%) (Auto) 0.3, Basophils (%) (Auto) 0.0, Neutrophils # (Auto) 3.69, Lymphocytes # (Auto) 1.86, Monocytes # (Auto) 0.34, Eosinophils # (Auto) 0.02, Basophils # (Auto) 0.00 06/09/18 20:10 Test 06/09/18 20:10 06/09/18 20:11 White Blood Count 5.92 K/uL (4.8-10.8) Red Blood Count 4.53 M/uL (4.2-5.4) Hemoglobin 13.3 g/dL (12.0-16.0) Hematocrit 38.6 % (37-47) Mean Corpuscular Volume 85.2 fL (80-100) Mean Corpuscular Hemoglobin 29.4 pg (25-34) Mean Corpuscular Hemoglobin Concent 34.5 g/dl (32-36) Platelet Count 219 K/uL (130-400) Mean Platelet Volume 10.0 fL (7.4-10.4) Neutrophils (%) (Auto) 62.4 % Lymphocytes (%) (Auto) 31.4 % Monocytes (%) (Auto) 5.7 % Eosinophils (%) (Auto) 0.3 % Basophils (%) (Auto) 0.0 % Neutrophils # (Auto) 3.69 K/uL (1.4-6.5) Lymphocytes # (Auto) 1.86 K/uL (1.2-3.4) Monocytes # (Auto) 0.34 K/uL (0.11-0.59) Eosinophils # (Auto) 0.02 K/uL (0-0.5) Basophils # (Auto) 0.00 K/uL (0-0.2) RDW Standard Deviation 38.7 fL (36.4-46.3) RDW Coefficient of Variation 12.5 % (11.5-14.5) Immature Granulocyte % (Auto) 0.2 % Immature Granulocyte # (Auto) 0.01 K/uL (0.00-0.02) Anion Gap 7.0 mmol/L (3-11) Est Creatinine Clear Calc Drug Dose 78.6 ml/min Estimated GFR () 82.2 Estimated GFR (Non- 70.9 BUN/Creatinine Ratio 15.2 (10-20) Calcium Level 8.8 mg/dl (8.5-10.1) Urine Color YELLOW Urine Appearance CLEAR (CLEAR) Urine pH 6.5 (4.5-7.5) Urine Specific [place] 1.010 (1.000-1.030) Urine Protein NEG (NEG) Urine Glucose (UA) NEG (NEG) Urine Ketones NEG (NEG) Urine Occult Blood NEG (NEG) Urine Nitrite NEG (NEG) Urine Bilirubin NEG (NEG) Urine Urobilinogen NEG (NEG) Urine Leukocyte Esterase NEG (NEG) Urine WBC (Auto) 1-5 /hpf (0-5) Urine RBC (Auto) 0-4 /hpf (0-4) Urine Hyaline Casts (Auto) 1-5 /lpf (0-5) Urine Epithelial Cells (Auto) 20-30 /lpf (0-5) Urine Bacteria (Auto) NEG (NEG) Laboratory results per my review. Medications Administered Medications (Trade) Dose Ordered Sig/Eugenie Route Start Time Stop Time Status Last Admin Dose Admin Sodium Chloride 1,000 ml @ 999 mls/hr Q1H1M STAT IV 06/09/18 19:59 06/09/18 20:59 DC 06/09/18 19:59 999 MLS/HR Hydromorphone HCl (Dilaudid Inj) 1 mg NOW STAT IV 06/09/18 19:59 06/09/18 20:01 DC 06/09/18 19:59 1 MG Ondansetron HCl (Zofran Inj) 4 mg NOW STAT IV 06/09/18 19:59 06/09/18 20:01 DC 06/09/18 19:59 4 MG ED Course ED COURSE: Vital signs were reviewed and showed hypertensive The patients medical record was reviewed The above diagnostic studies were performed and reviewed. ED treatments and interventions as stated above. 1950: The patient was evaluated in room B04A. A complete history and physical examination was performed. 1958: Ordered Zofran Injection 4 mg IV, Dilaudid Injection 1 mg IV, Sodium Chloride 1000 ml @ 999 mls/hr IV. 2154: Upon reevaluation, the patient is resting comfortably. I discussed my findings with the patient and she understands and agrees with the treatment plan. Based on the patients age, coexisting illnesses, exam and lab findings the decision to treat as an outpatient was made. The patient remained stable while under my care. The patient appeared well at the time of discharge. Medical Decision Differential diagnosis includes etiologies such as cellulitis, abscess, MRSA infection, DVT, necrotizing fasciitis, dermatitis, drug eruption, as well as others were entertained. Patient is a 47-year-old female who presents the ER for lower back pain and possible cellulitis along with allergic reaction to Bactrim and she notes she feels very nauseous after taking the medication. On exam she has a clear burn to the left lower back as opposed to a cellulitis. I strongly recommended stopping the Bactrim. IV was established and CBC along with BMP was unremarkable. UA was negative. She did have moderate lower back pain worse on the left paraspinal region. Pain was reproducible. She is neurologically and neurovascularly intact. X-rays of lumbar spine were unremarkable. She was given a dose of IV narcotics. She did feel significantly better. She is discharged follow-up with PCP as an outpatient. No fevers. No history cancer. No recent trauma. No signs of cauda equina. Discussed with Pt concerning signs and symptoms to watch out for. Pt was instructed to follow up with their PCP and discussed with the patient their option to return to the ED at anytime for persistent or worsening symptoms. The appropriate anticipatory guidance and out-patient management, including indications for return to the emergency department, were explained at length to the patient and understood. Medication Reconcilliation Current Medication List: was personally reviewed by me Blood Pressure Screening Patient's blood pressure: Elevated blood pressure Blood pressure disposition: Elevated BP felt to be situational Impression Primary Impression: Strain of lumbar region Additional Impression: Burn Scribe Attestation The scribe's documentation has been prepared under my direction and personally reviewed by me in its entirety. I confirm that the note above accurately reflects all work, treatment, procedures, and medical decision making performed by me. Departure Information Dispostion Home / Self-Care Referrals Adriana Rodriguez M.D. (PCP) Forms HOME CARE DOCUMENTATION FORM, IMPORTANT VISIT INFORMATION Patient Instructions Back Pain - [facility], ED Burn D 1st, My [facility] Additional Instructions Please follow up with your primary care doctor with in the next 24 hours. Any worsening of your symptoms, please return to the ED immediately. This includes any fevers greater than 100.4, worsening pain, chest pain, shortness breath, persistent nausea, vomiting, unable to eat or drink, or any other concerning signs or symptoms from your standpoint. You were given medications during this visit that will inhibit your ability to drive, operate machinery and work. Please do NOT drive, operate machinery, drink alcohol or work for the next 12hrs. Please take Tylenol or Motrin as needed for pain. You can continue using her Soma as previously prescribed. I would try to refrain from using any tonight. No heavy lifting. Any tingling, numbness or weakness in the legs along with any numbness in the groin unable to move your bowel or bladder he should return immediately to the ER. Problem Qualifiers Primary Impression: Strain of lumbar region Encounter type: initial encounter Qualified Codes: S39.012A - Strain of muscle, fascia and tendon of lower back, initial encounter
== END 2018-06-09 22:34 | disposition home or self-care (01) ==
LOC: C.EDB 19:40
DX: S39.012A Strain of muscle, fascia and tendon of lower back, initial encounter (principal); T21.04XA Burn of unspecified degree of lower back, initial encounter; X58.XXXA Exposure to other specified factors, initial encounter; Z98.890 Other specified postprocedural states; Z85.820 Personal history of malignant melanoma of skin; K21.9 Gastro-esophageal reflux disease without esophagitis; E03.9 Hypothyroidism, unspecified; K58.9 Irritable bowel syndrome, unspecified; Z79.899 Other long term (current) drug therapy; Z88.2 Allergy status to sulfonamides; Z91.018 Allergy to other foods